=== PATIENT | male | born 1980 | race Caucasian/White ===

== ENCOUNTER 2016-07-20 00:15 | Emergency (ER) | payer MEDICAID ==
[~2016-07-20] VITALS: Ht 188 cm; Wt 72.7 kg
[2016-07-20 00:30] VITALS: BP 146/86; PULSE 97; RESP 16; O2SAT 96
--- NOTE | 2016-07-20 00:33 | ED.REPORT ---
HPI-Extremity Problem Upper Date of Service Jul 20, 2016 ED Provider: Chrissy Pascal MD 35 year old male who is left hand dominant presents to the ER complaining of right wrist pain secondary to falling off his skateboard yesterday. He localizes his pain to the radial aspect of the right wrist and forearm, and states that it radiates across his right hand. Associated symptom of right wrist /hand weakness. Patient denies any further injuries. Nursing Notes Stated Complaint: RT WRIST PAIN Chief Complaint: Extremity Trauma Nursing Notes Reviewed: Yes Allergies: Coded Allergies: iodine (Verified Allergy, Severe, Anaphylaxis, 07/20/16) Uncoded Allergies: PENICILLIN (Allergy, Mild, 07/20/16) General Time Seen by MD: 00:32 Chief Complaint Wrist injury right Hx Obtained From: Patient Arrived By: Walk-in Onset Occurred: Yesterday Symptom Duration: Since onset Caused by: Accidental, Fall on ground, Sports injury (Skateboard) Context: Occurred at: Sports injury Location: : Wrist right Quality: Painful Severity: Current: Moderate Severity: Maximum: Moderate Pertinent Negative: Pt denies other symptoms Exacerbated by: Range of motion, Movement Pertinent Negative: Relieved by nothing Similar Sx Previous: No Past Medical History Past Surgical History Right thumb Smoking History Current Every Day Smoker Ambulatory Status Independent Review of Systems Musculoskeletal: Reports: Extremity pain (Right Wrist/Hand), Denies: Back pain, Joint pain, Lumbar pain, Neck pain, Thoracic pain Neurologic: Reports: Focal weakness (Right Hand), Denies: Headache, Syncope Complete sys rev & neg: except as marked. Physical Exam Initial Vital Signs Vital Signs (First) Date Time Temp Pulse Resp B/P Pulse Ox O2 Delivery O2 Flow Rate FiO2 07/20/16 00:30 36.7 97 16 146/86 96 Room Air Initial VS: Reviewed General/Constitutional: Well-developed, Well-nourished Head / Eyes: Atraumatic, Normocephalic, PERRL Neck: Supple, Non-tender, Full range of motion Lower Extremities: Vascular intact, Neuro intact, No swelling, No tenderness Skin: Warm, Dry, No cyanosis Neurologic: Alert, Oriented, Nonfocal Psychiatric: Mood/affect normal, Behavior normal, Normal thought content Wrist / Hand: Full range of motion, No deformity, Neurologic intact, Vascular intact Right Wrist: Positive: Tender snuffbox... (Moderate) Scar over Right snuffbox. At baseline he does not have full extension of the DIP of the Right thumb, but otherwise FROM of Right hand. Tenderness over medial dorsal Right wrist with overlying edema. Interpretation & Diagnostics X-Ray Interpretation Xray Interpretation: No sign of fracture. X-Ray Ordered: Wrist right Interpretation / Wet Read by: Wet read ED physician Procedures Splint Application - Fx Mgt Time: 01:02 Procedure Performed by: ED physician, Allied health pract Precise Anatomic Location: Right Hand/Wrist Thumb spica Definitive Fracture Care: Splint Post-Procedure / Complications: Cap refill normal, Post splint vascular nl, Post splint neuro nl, Condition improved, Tolerated procedure well, Patient stable Splint Post-Application Eval Extremity Condition: Cap refill < 2 sec, Distal sensation intact, Distal motor Intact, No compartment syndrome Re-Eval/Medical Decision Med Decision/Clinical Course 35-year-old male here with right wrist pain. He is left-hand dominant. Differential diagnosis includes but is not limited to scaphoid fracture versus other fracture versus dislocation versus sprain. By my view of x-ray, I do not see any fractures. I also do not see any dislocations. Patient was placed in thumb spica for his snuff box tenderness to palpation. He was given very strict splinting precautions. He will follow up with orthopedic surgery. He is amenable to discharge at this time. Re-Evaluation/Progress : Time of Eval: 01:01 Re-Evaluation/Progress Note: Discussed imaging results and plan to discharge. Patient is amenable to the plan. Return precautions given. All other questions addressed. Counseled Regarding: Diagnosis, Need for follow-up, When/why to return to ED Discharge & Departure Impression: Primary Impression: Wrist sprain Disposition: Home Discharge Condition All VS Reviewed: Yes Condition: Stable Patient Instructions: Wrist Injury (DC) Additional Instructions: Your x-ray does not show any signs of fracture. 800mg ibuprofen every 8 hours for pain. Follow-up with the orthopedic doctor in about a week at the number provided. Return to the ER if you develop uncontrollable pain, swelling, redness, numbness /tingling, or any other concerning symptoms. Referrals: Anthony Aguero MD [facility] Scribe Attestation Portions of this note were transcribed by Romeo Viveros. I, Dr. Pascal, personally performed the history, physical exam and medical decision-making; I reviewed and confirmed the accuracy of the information in the transcribed note. Signed by: Wild De. 07/20/2016 - 01:03 copies to: Anthony Aguero MD; [facility] Link,Chrissy Eddy MD Jul 20, 2016 00:33 ROMEO VIVEROS Jul 20, 2016 00:39
[2016-07-20 01:09] VITALS: BP 138/82; PULSE 92; RESP 17; O2SAT 97
--- NOTE | 2016-07-20 08:05 | DRSVH ---
PROCEDURE: X-RAY RIGHT WRIST COMPLETE, MINIMUM THREE VIEWS ([id number]) INDICATIONS: FELL BACKWARDS CAN CAUGHT SELF WITH RIGHT HAND TECHNIQUE: 4 views of the wrist were acquired. COMPARISON: None. FINDINGS: Bones: There is an avulsion over the dorsal margin of the triquetrum on lateral view. No additional fractures or dislocations. No suspicious bony lesions. Small accessory ossicle at the tip of the uln ar process Scaphoid view: Negative for fracture Soft tissues: No suspicious soft tissue calcifications. IMPRESSION: Dorsal avulsion fracture of the triquetrum Dictated by: Franklyn Rasmussen M.D. on 07/20/2016 at 8:02 Approved by: Franklyn Rasmussen M.D. on 07/20/2016 at 8:04
== END 2016-07-20 01:09 | disposition home or self-care (01) ==
LOC: SED 00:15
DX: S63.501A Unspecified sprain of right wrist, initial encounter (principal); V00.131A Fall from skateboard, initial encounter; Y93.51 Activity, roller skating (inline) and skateboarding; Y92.89 Other specified places as the place of occurrence of the external cause; Y99.8 Other external cause status; F17.200 Nicotine dependence, unspecified, uncomplicated; Z88.8 Allergy status to other drugs, medicaments and biological substances

== ENCOUNTER 2016-07-24 20:12 | Emergency (ER) | payer MEDICAID ==
[~2016-07-24] VITALS: Ht 188 cm; Wt 63.6 kg
--- NOTE | 2016-07-24 20:46 | ED.REPORT ---
HPI-Psychiatric Illness Date of Service Jul 24, 2016 ED Provider: Dr. Banerjee. A 35 year old male is presented to the ED via police with suicidal ideations. Upon me entering the room ,the patient states "Leave me the fuck alone, I am not talking to you or doing anything for you. Police brought me here and I am going to kill myself." Patient refused cardiopulmonary exam. Per [employer] the patient wanted to throw himself in front of a train. Per nurse note, upon arrival at ED the patient started removing his clothes and talking to himself and a wall with pressured speech. Nursing Notes Stated Complaint: MENTAL HEALTH EVAL Chief Complaint: Psychiatric Complaint Nursing Notes Reviewed: Yes Allergies: Coded Allergies: iodine (Verified Allergy, Severe, Anaphylaxis, 07/20/16) Uncoded Allergies: PENICILLIN (Allergy, Mild, 07/20/16) General Time Seen by MD: 20:46 Chief Complaint Suicidal ideation Hx Obtained From: Patient, Police Onset Occurred: Onset unknown Symptom Duration: Duration unknown Progression Since Onset: Unchanged Recent Healthcare: Recent doctor visit (visited ED on 07/20/2016) Similar Sx Previous: No Risk-Psychiatric Illness Suicide Risk Stratification RF Statements: Risk factors reviewed Past Medical History Past Medical History Patient visited ED on 07/20/2016 for right wrist injury. Past Surgical History Right thumb Smoking History Current Every Day Smoker Ambulatory Status Independent Review of Systems Unable to Obtain ROS Uncooperative Physical Exam Initial Vital Signs Vital Signs (First) Date Time Temp Pulse Resp B/P Pulse Ox O2 Delivery O2 Flow Rate FiO2 07/24/16 23:53 36.2 109 20 123/77 96 Room Air Initial VS: Reviewed General/Constitutional: Awake, Alert Patient was sleeping when I walked in, but then he woke up and started to cuss and swear. Patient refused cardiopulmonary exam. Neurologic: Oriented X3, Speech NL Abnormal Thinking / Perception: Positive: Suicidal, no plan (Patient states that they are going to kill themselves.) Head / Eyes: Atraumatic, Normocephalic, PERRL, EOMI ENT: Atraumatic, Airway patent RESPIRATORY/CHEST: Patient refused cardiopulmonary exam. CARDIOVASCULAR: Patient refused cardiopulmonary exam. Abdomen: Atraumatic Skin: Color NL, Warm, Dry Upper Extremity / MS: No swelling, No edema Interpretation & Diagnostics Lab Results Interpretation Result Diagram: 07/25/16 0400 07/25/16 0525 Test 07/25/16 04:00 07/25/16 05:25 07/25/16 16:08 White Blood Count 13.1th/mm3 (3.8-10.1) Red Blood Count 5.91mil/mm3 (4.40-5.80) Hemoglobin 18.9g/dL (13.8-17.2) Hematocrit 54.2% (41.0-50.0) Mean Corpuscular Volume 91.7fL (81-100) Mean Corpuscular Hemoglobin 32.0pg (27.0-35.0) Mean Corpuscular Hemoglobin Concent 34.9% (32.0-37.0) Red Cell Distribution Width 13.3% (12.3-15.4) Platelet Count 259bil/L (150-400) Neutrophils (%) (Auto) 63.6% (40-74) Lymphocytes (%) (Auto) 28.5% (14-46) Monocytes (%) (Auto) 7.4% (4-12) Eosinophils (%) (Auto) 0.2% (0-5) Basophils (%) (Auto) 0.1% (0-3) Sodium Level 148mEq/L (134-144) Chloride Level 105mEq/L (97-108) Carbon Dioxide Level 20mmol/L (18-29) Blood Urea Nitrogen 11mg/dL (6-20) Creatinine 1.16mg/dL (0.76-1.27) Estimat Glomerular Filtration Rate 76mL/min (>59) Glucose Level 97mg/dL (60-99) Calcium Level 10.9mg/dL (8.5-10.1) Total Bilirubin 0.4mg/dL (0.0-1.2) Aspartate Amino Transf (AST/SGOT) 25U/L (0-50) Alanine Aminotransferase (ALT/SGPT) 13U/L (0-44) Alkaline Phosphatase 81U/L (25-150) Total Creatine Kinase 288U/L (21-232) Total Protein 8.5g/dL (6.4-8.4) Albumin 5.1g/dL (3.4-5.0) Thyroid Stimulating Hormone (TSH) 3.670uIU/mL (0.450-4.500) Hold Stahl Top Tube Received (Received) Potassium Level 3.8mEq/L (3.5-5.2) Urine Color Yellow (YELLOW) Urine Appearance Clear (CLEAR,HAZY) Urine pH 7.5 (5.0-8.0) Urine Specific [place] 1.015 (1.003-1.035) Urine Protein Negativemg/dL (NEG,TRACE) Urine Glucose (UA) Negativemg/dL (NEGATIVE) Urine Ketones Negativemg/dL (NEGATIVE) Urine Occult Blood Negative (NEGATIVE) Urine Nitrite Negative (NEGATIVE) Urine Bilirubin Negative (NEGATIVE) Urine Urobilinogen Normalmg/dL (NORMAL) Urine Leukocyte Esterase Negative (NEGATIVE) Urine RBC 0-2/hpf (0-2) Urine WBC 0-5/hpf (0-5) Urine Epithelial Cells Few/hpf (NONE-MOD) Urine Crystals None seen (NONE SEEN) Urine Bacteria None/hpf (NONE-FEW) Urine Hyaline Casts None/lpf (NONE) Urine Granular Casts None seen (NONE SEEN) Urine Waxy Casts None seen (NONE SEEN) Urine Red Blood Cell Casts None seen (NONE SEEN) Urine White Blood Cell Casts None seen (NONE SEEN) Urine Mucus None seen (None Seen) Urine Trichomonas None seen (NONE SEEN) Urine Yeast None (NONE SEEN) Urine Culture Reflexed Not indicated ECG Interpretation ECG Interpretation: Sinus tachycardia rate [address] elevation, probable normal early repol pattern Time: 05:17 Interpreted by: ED physician (Dr. Khanna) Re-Eval/Medical Decision Med Decision/Clinical Course 16730: Venancio French, DO: I assumed care of this patient at 6 AM, he is now medically clear, potassium 3.8. It appears that the patient was detained overnight. Resting comfortably after having been medicated. Will await placement. 1500: Patient was seen by Dr. Bills, psychiatry, who recommends Ativan 1 mg and Seroquel 100 mg now and before bed. Currently continuing to await placement. At 12:18 AM Mr. Kate has become combative. He is kicking and punching a door. He is shouting and threatening staff members. He will not cooperate with us. He will not sit down and talk to me. He will need to be chemically and physically restrained for his safety and staff's safety. He will receive intramuscular Ativan, Haldol and Benadryl. I tried every reasonable approach with him. I tried talking to him in a calm non-threatening setting. He shouted profanities at me. I had nursing staff try to talk to him. Again he was threatening and combative. At this point in time it is for everyone's safety involved he be restrained. Of note there is a sign please affidavit where Mr. Kate has stated that he is going to kill himself. He has a plan of overdosing on pills and lying down on the train tracks. When I talked him about this specifically he admits to being suicidal. He will not give me any other information at this time. Approximately 12:30 AM a mik rankin was called. Security officers and nursing staff was present. I spoke again with Mr. Kate. He is obviously very upset about being in the emergency department. I again informed him that I need to have a mental health evaluation performed due to his suicidal ideations. He would like to have that mental health evaluation. He is now agreed to some oral liquids and he will produce a urine sample. I will then consult with the DCR to evaluate him. 02:33 Osmin the DCR has evaluated Mr. Kate. He feels that Mr. Kate is not safe for discharge and he will be detaining him for inpatient mental health treatment. Please see his report. Lab work has been requested. [address] Khanna: This patient's care was turned over to me at change of shift. He continued to be pacing and at times approaching of the door and staff aggressively. We did a code Rankin and veto his blood which he will require for placement and gave him an injection of Benadryl, Haldol, and Ativan. His potassium came back at 6.9 with a normal kidney function. By the time this was returned he was much calmer and we were able to start a line, start fluids, and repeat the potassium. An EKG was performed which did not show any significant T-wave elevation or QRS widening. We are currently waiting for the repeat potassium. His care is being turned over change of shift to Dr. French. Source of Hx: Old records Re-Evaluation/Progress #1: Time of Eval: 03:26 Patient Status: Condition improved Re-Evaluation/Progress Note: [id number] recheck performed by Dr. Khanna after care was transferred at change of shift. The patient remains in seclusion and continues to have suicidal ideation and intent. He has been detained to the ED by the mental health professional. He is high risk for elopement. The patient has been verbally threatening to staff and uncooperative with his care. He is currently laying on the bed. Re-Evaluation/Progress #2: Time of Eval: 03:58 Patient Status: Condition improved Re-Evaluation/Progress Note: Patient rechecked by Dr. Khanna. Patient was uncooperative with blood draw. He required a code stahl and was given injectable sedative medications. He continued to make abusive threats towards staff and threatened to leave. Patient remains in seclusion. Re-Evaluation/Progress #3: Time of Eval: 05:32 Re-Evaluation/Progress Note: Potassium was 6.9. Repeated on same blood with same result. His medication is taking effect. IV will be started, potassium rechecked, and normal saline started. ECG will be done. Will initiate further hyperkalemia protocol if retest is also high Re-Evaluation/Progress #4: Time of Eval: 17:46 Re-Evaluation/Progress Note: Patient resting comfortably on bed. Updated of wrist fracture and plan for follow up. Pt aware of plan for transfer. Consultation : Call Returned at: 00:57 Note: Discussed patient case with [facility]. [facility] staff needs clearance through supervisor [employer]rection [employer] because they cannot come out at night. Counseled Regarding: Diagnosis Discharge & Departure Shift Change Sign-Out Patient Care Transferred: Yes Discussed Complaint(s): Yes Departure Notes Care assumed at 1500 412. Pt calm cooperative, has splint on R wrist from skateboard crash 07/20. Avulsion over triquetrium. Pt states has not called for orhto follow up- reminded him he needs to do so. Lungs clear Card Reg r and r. To [facility]. Impression: Primary Impression: Acute situational disturbance Additional Impression: Suicidal ideation )( Condition at Discharge: Clear for psych facility Disposition: Transfer, Psychiatric Inpt Transfer Requested at: 17:51 Receiving Hospital: [facility] accepts. Stable for BLS. Discharge Condition All VS Reviewed: Yes Referrals: Anthony Aguero MD Care Transferred to: Dr. Jey French, 0600 Dr. Richards 1500 Care Transferred at: 03:00 Scribe Attestation Portions of this note were transcribed by Quinten Peguero. I, Dr. Banerjee personally performed the history, physical exam and medical decision-making; I reviewed and confirmed the accuracy of the information in the transcribed note. Signed by: Wild Stock, 07/25/2016, 0315. Portions of this note were transcribed by Lucero Emmanuel. I, Dr. Khanna, personally performed the history, physical exam, and medical decision-making; I reviewed and confirmed the accuracy of the information in the transcribed note. Signed by: Wild Ram, 07/25/2016, 05:40 Portions of this note were transcribed by Daksha Moreno. I, (Dr. Richards) personally performed the history, physical exam and medical decision-making; I reviewed and confirmed the accuracy of the information in the transcribed note. Signed by: Daksha Moreno. Wild, 07/25/2016, 1807 copies to: [facility] Estiven Banerjee DO Jul 24, 2016 20:46 Quinten Peguero Jul 24, 2016 22:27 LUCERO EMMANUEL Jul 25, 2016 03:29 Todd Khanna MD Jul 25, 2016 06:16 Venancio French DO Jul 25, 2016 07:01 Susannah Tyler Jul 25, 2016 15:01 Michael Richards MD Jul 25, 2016 17:52 Daksha Moreno Jul 25, 2016 18:07
[2016-07-24 23:53] VITALS: BP 123/77; PULSE 109; RESP 20; O2SAT 96
[2016-07-25] MEDS ORDERED: Haloperidol 5 mg/mL Inj IM PRN (00:20)
[2016-07-25] MEDS ORDERED: LORazepam 2 mg Tablet PO ONE (02:35)
[2016-07-25 04:06] LABS: BASOPHILS % (AUTO) 0.1 % (0-3); EOSINOPHILS % (AUTO) 0.2 % (0-5); MONOCYTES % (AUTO) 7.4 % (4-12); Mean Corpuscular Volume 91.7 fL (81-100); NEUTROPHILS % (AUTO) 63.6 % (40-74); Platelet Count 259 bil/L (150-400)
[2016-07-25] MEDS ORDERED: 0.9% Sodium Chloride 1,000 ML IV ONE (05:04)
[2016-07-25 06:23] VITALS: BP 124/73; PULSE 98; RESP 14; O2SAT 96
[2016-07-25] MEDS ORDERED: LORazepam 1 mg Tablet PO ONE ×2 (14:15→21:00)
[2016-07-25 16:26] LABS: APPEARANCE,URINE CLEAR (CLEAR,HAZY); COLOR,URINE YELLOW (YELLOW); OCCULT BLOOD,URINE NEGATIVE (NEGATIVE); PH,URINE 7.5 (5.0-8.0); UROBILINOGEN,URINE NORMAL (NORMAL)
--- NOTE | 2016-07-25 18:33 | CONS ---
[address] [address] CONSULTATION REPORT PATIENT: GRETA HAYNES : 1980 MR#: [id number] ADMIT: 07/24/2016 JOB ID: [id number] DATE OF SERVICE: 07/25/2016 IDENTIFICATION: The patient is a 35-year-old homeless white male. He has previously worked as a christopher. He spent most of his life in [place] but was recently in [place], [place] living there with his girlfriend before moving to [place] one month ago. They had been staying with his girlfriend's parents' and he currently describes himself as homeless. REASON FOR ADMISSION: Client to the emergency department via police with suicidal ideations stating he is going to kill himself by overdosing on his meds or by having a train run over him. HISTORY OF PRESENT ILLNESS: Client presents for evaluation and treatment of suicidal ideation and psychosis. I met with him for a brief evaluation and reviewed course and records kept by [facility]. The patient's main issue is psychosis. Co- occurring issues are poor impulse control, depression and suicidal ideation. The condition is chronic and has been present for the patient for over the past 15 years. At present, it is of a severe intensity manifesting with symptoms of suicidal ideation and a plan to kill himself as well as poor impulse control and poor reality testing. In the ED, he was hostile, telling the ED doctors to "leave me the fuck alone" and "I am not talking you." After admission to the ED, he started removing his clothes, talking to himself as if responding to internal stimuli, and talking in a rapid manner. He would not follow redirection and was given IM Haldol, Ativan and Benadryl. Since that time, he has been sleeping in their seclusion area. When I met with him, he was irritable, angry and demanding discharge. Late last night, the [facility] designated mental health professional was called and felt the patient presented a danger to himself, was gravely disabled and detained him on a 72-hour involuntary treatment hold. At present, he is showing marked symptoms of emotional liability, mild cognitive deficits, marked impairment in impulse control and coping. His judgment and insight also appear impaired. Client minimized psychiatric review of systems for depression, yesy, psychosis, or substance abuse today. He appeared to be a poor historian. PAST MEDICAL HISTORY: MEDICATIONS: Client reports being on: 1. Effexor 225 mg daily. 2. Seroquel 150 h.s. ALLERGIES: PENICILLIN. ILLNESSES: Right wrist injury. FAMILY MEDICAL HISTORY: Father in 1995. Mother went to [facility] when he was 15. PAST PSYCHIATRIC HISTORY: Client states he has been to multiple inpatient psychiatric units. PAST PSYCHOSOCIAL HISTORY: Client was born in [place]. States he has been to [employer] and his family moved a lot. He attended school to the 9th grade and works in the trades as a christopher. He refused to answer questions about trauma. Denied drug and alcohol use. He is an active smoker. LETHALITY: Client reports two previous suicide attempts in 2004 by hanging. He stated he tried to do this when they took away his parenteral rights to his daughter. Currently denies suicidal ideation. RELATIONSHIP HISTORY: Client states he has a girlfriend. ADVENTISM: None. LEGAL HISTORY: Client denies. PHYSICAL EXAM: Vital signs 123/77, pulse 109, respirations 20, afebrile. LABS: CBC: WBC of 13, hematocrit 54. Liver electrolytes, thyroid normal except for potassium initially 6.9, now 3.8. Sodium initially 128. Urine tox is positive for THC. MENTAL STATUS EXAMINATION: Client disheveled, lying on a hospital gurney. His behavior was oppositional, defiant and hostile. Attitude was guarded. Speech: Loud and pressured. Mood: Angry. Affect: Congruent with high intensity. Thought process: Client was unable to relate a coherent history. He became more angry when I tried to get him to describe specifics. He did not appear to be responding to internal stimuli. Thought content was significant for themes of the betrayal, persecution and injustice by the police department and the hospital staff. Client denied suicidal ideation or auditory hallucinations. Client was alert and oriented to person, place. His memory was mildly impaired. Attention mildly impaired. Insight and judgment poor. Impulse control highly contained at the moment but rigid, unable to handle impulses of anger and guilt. Reality testing is mildly impaired. Competence to handle current stressors is currently being overwhelmed. IMPRESSION: The patient appears to be a 35-year-old, white male who has struggled with symptoms of psychosis and depression in the past. He is being treated with both Effexor and Seroquel. His urine tox was positive for THC and it appears that he had a brief reactive psychosis that resulted in both suicidal ideation, psychosis and hostile bizarre behavior in the ED. At present, he seems to be recovering after receiving 10 mg of Haldol. He is currently on a 72-hour involuntary treatment hold and awaiting a bed on site. DIAGNOSIS: [place] I1. Preliminary substance-induced mood and thought disorder. 2. Rule out schizophrenia. 3. Rule out bipolar mood disorder with psychosis. [place] IIAntisocial traits. [place] IIINone. [place] IVUnknown. [place] VCurrent global assessment of functioning equal to 30. PLAN: Recommend client be provided with a high degree of structure through the seclusion room in the ED prior to being admitted to an inpatient hospital. Would restart Seroquel at 100 mg twice a day and Ativan 1 mg twice a day for acute agitation and psychosis. Would restart Effexor at 225 mg per day tomorrow. Client is on a 72-hour involuntary treatment hold and would recommend he be transferred to the earliest inpatient psych unit that becomes available, whether that is ours or one of the local hospitals. If client is still here in the ED tomorrow, I will follow up on a daily basis.
== END 2016-07-25 18:36 | disposition other institution (70) ==
LOC: SED 21:16
DX: F43.0 Acute stress reaction (principal); R45.851 Suicidal ideations; S62.111D Displaced fracture of triquetrum [cuneiform] bone, right wrist, subsequent encounter for fracture with routine healing; Z88.0 Allergy status to penicillin
CPT/HCPCS: 36415; 80053; 81000; 81002; 82075; 82550; 84132; 84443; 85025; 90791; 93005; 96372; 99285; J1200; J1630; J2060